=== PATIENT | female | born 1985 | race Caucasian/White ===

== ENCOUNTER → 2016-06-07 | Outpatient (CLI) | payer OTHER ==
[~2016-06-07] MED LIST: ALLDSR60 PO; PRENTAB26 PO
== END | disposition home or self-care (01) ==
LOC: C.PAPS 11:41
PROVIDERS: ATTEND Obstetrics & Gynecology
DX: Z12.4 Encounter for screening for malignant neoplasm of cervix (principal); Z87.42 Personal history of other diseases of the female genital tract

== ENCOUNTER → 2016-07-31 | Outpatient (CLI) | payer OTHER | END | disposition home or self-care (01) | LOC: C.LAB1850 14:17 | PROVIDERS: ATTEND Obstetrics & Gynecology | DX: Z34.90 Encounter for supervision of normal pregnancy, unspecified, unspecified trimester (principal) ==

== ENCOUNTER → 2016-08-18 | Outpatient (CLI) | payer OTHER ==
[~2016-08-18] MED LIST changes: +VALA500T60 PO
[2016-08-18 16:23] LABS: URINE APPEARANCE CLEAR (CLEAR); URINE BILIRUBIN NEG (NEG); URINE COLOR YELLOW; URINE NITRITE NEG (NEG); URINE PH 7.5 (4.5-7.5); URINE SPECIFIC GRAVITY 1.017 (1.000-1.030); UROBILINOGEN NEG (NEG)
[2016-08-18 16:32] LABS: MANUAL MICROSCOPIC REQUIRED? NO; REVIEW REQ? NO
== END | disposition home or self-care (01) ==
LOC: C.LABSPEC 15:50
PROVIDERS: ATTEND Obstetrics & Gynecology
DX: Z34.90 Encounter for supervision of normal pregnancy, unspecified, unspecified trimester (principal)

== ENCOUNTER → 2016-08-30 | Outpatient (CLI) | payer OTHER ==
[2016-08-30 16:45] LABS: BASO % 0.3 %; BASO ABS # 0.03 K/uL (0-0.2); COMPLETE YES; EOS % 2.2 %; HEMATOCRIT 38.8 % (37-47); IG% 0.5 %; LYMPH % 19.9 %; LYMPH ABS # 2.33 K/uL (1.2-3.4); MEAN CELL VOLUME 86.6 fL (80-100); MEAN CORPUSCULAR HEMOGLOBIN 29.9 pg (25-34); MEAN CORPUSCULAR HGB CONC 34.5 g/dl (32-36); MEAN PLATELET VOLUME 10.9 fL (7.4-10.4); MONO % 3.5 %; NEUT % 73.6 %; PLATELET COUNT 247 K/uL (130-400); RED BLOOD COUNT 4.48 M/uL (4.2-5.4); WHITE BLOOD COUNT 11.71 K/uL (4.8-10.8)
[2016-09-02 01:24] LABS: CHLAMYDIA TRACH RNA*** NOT DETECTED (NOT DETECTED); GC (NEIS GONORRHOEAE)RNA** NOT DETECTED (NOT DETECTED)
== END | disposition home or self-care (01) ==
LOC: C.LAB1850 16:05
PROVIDERS: ATTEND Obstetrics & Gynecology
DX: Z34.90 Encounter for supervision of normal pregnancy, unspecified, unspecified trimester (principal)

== ENCOUNTER → 2016-09-26 | Outpatient (CLI) | payer OTHER ==
[2016-09-26 13:59] LABS: GTGD 50 Grams
== END | disposition home or self-care (01) ==
LOC: C.LAB1850 11:11
PROVIDERS: ATTEND Obstetrics & Gynecology
DX: Z34.90 Encounter for supervision of normal pregnancy, unspecified, unspecified trimester (principal)

== ENCOUNTER → 2017-01-04 | Outpatient (CLI) | payer OTHER ==
[~2017-01-04] MED LIST changes: -VALA500T60 PO
[2017-01-04 15:40] LABS: HEMATOCRIT 38.4 % (37-47)
[2017-01-04 16:27] LABS: URINE APPEARANCE CLEAR (CLEAR); URINE BILIRUBIN NEG (NEG); URINE COLOR YELLOW; URINE NITRITE NEG (NEG); URINE SPECIFIC GRAVITY 1.019 (1.000-1.030); UROBILINOGEN NEG (NEG)
[2017-01-04 16:34] LABS: MANUAL MICROSCOPIC REQUIRED? NO; REVIEW REQ? NO
[2017-01-04 17:29] LABS: GTGD 50 Grams
== END | disposition home or self-care (01) ==
LOC: C.LAB1850 13:34
PROVIDERS: ATTEND Obstetrics & Gynecology
DX: Z34.90 Encounter for supervision of normal pregnancy, unspecified, unspecified trimester (principal)

== ENCOUNTER → 2017-02-22 | Outpatient (CLI) | payer OTHER | END | disposition home or self-care (01) | LOC: C.LABSPEC 17:30 | PROVIDERS: ATTEND Obstetrics & Gynecology | DX: Z34.83 Encounter for supervision of other normal pregnancy, third trimester (principal); Z3A.00 Weeks of gestation of pregnancy not specified ==

== ENCOUNTER 2017-03-16 13:10 | Inpatient (IN) | payer OTHER ==
[~2017-03-16] VITALS: Ht 160 cm; Wt 70.5 kg
[2017-03-16] MEDS ORDERED: LACTATED RINGER'S 1000ML 1,000 ML IV PRN (13:37)
[2017-03-16 14:22] LABS: MEAN CELL VOLUME 86.3 fL (80-100); MEAN CORPUSCULAR HGB CONC 34.8 g/dl (32-36); PLATELET COUNT 175 K/uL (130-400); WHITE BLOOD COUNT 20.29 K/uL (4.8-10.8)
[2017-03-16] MEDS: LACTATED RINGER'S 1000ML 1,000 ML IV SCH ×3 (14:26→21:26)
[2017-03-16] MEDS ORDERED: VALA500T60 PO (15:04)
[2017-03-16 15:07] VITALS: Ht 160 cm; Wt 70.5 kg
[2017-03-16] MEDS ORDERED: OXYTOCIN 30 UNITS/500ML NSS IV ONE (17:37)
[2017-03-16] MEDS ORDERED: BUPIVACAINE 0.25% 30 ML VIAL ONE (19:02)
[2017-03-16] MEDS ORDERED: EpHEDrine SULFATE INJ 50 MG/ML AMP ONE (19:02)
[2017-03-16] MEDS ORDERED: FENTANYL 2MCG/ML ROPIV 1.25MG/ML 100ML BAG EPI ONE (19:02)
[2017-03-16] MEDS ORDERED: FENTANYL CITRATE INJ 50 MCG/1 ML 2 ML VIAL ONE (19:03)
[2017-03-16] MEDS ORDERED: LACTATED RINGER'S 1000ML 500 ML IV PRN ×2 (19:05→20:50)
[2017-03-16] MEDS ORDERED: OXYTOCIN 30 UNITS/500ML NSS IV PRN ×2 (19:15→22:00)
[2017-03-16] MEDS ORDERED: NALOXONE HCL INJ 1 MG in SODIUM CHLORIDE 0.9% 1000ML 1,000 ML IV PRN (20:50)
[2017-03-16] MEDS ORDERED: DiphenhydrAMINE HCL 50 MG/ML VIAL IV PRN (21:00)
[2017-03-16] MEDS ORDERED: EpHEDrine SULFATE INJ 50 MG/ML AMP IV PRN (21:00)
[2017-03-16] MEDS ORDERED: NALBUPHINE HCL INJ 10 MG/ML AMP IV PRN (21:00)
[2017-03-16] MEDS ORDERED: NALOXONE HCL INJ 0.4 MG/1 ML VIAL/CARP IV PRN (21:00)
[2017-03-16] MEDS ORDERED: FENTANYL 2MCG/ML ROPIV 1.25MG/ML 100ML BAG EPI PRN (21:00)
[2017-03-16] MEDS ORDERED: METHYLERGONOVINE MALEATE 0.2 MG/ML AMP ONE (21:46)
[2017-03-16] MEDS ORDERED: BENZOCAINE 20% AER SPR 82.5 GM CAN EXT PRN (22:00)
[2017-03-16] MEDS ORDERED: SUPERCREAM 0.870 % 15GM JAR EXT PRN (22:00)
[2017-03-16] MEDS ORDERED: IBUPROFEN 600 MG TAB PO PRN (22:00)
[2017-03-16] MEDS ORDERED: ACETAMINOPHEN 325 MG TAB PO PRN (22:00)
[2017-03-16] MEDS ORDERED: METHYLERGONOVINE MALEATE 0.2 MG/ML AMP IM ONE (22:00)
[2017-03-16] MEDS ORDERED: HYDROCORTISONE ACETATE 25 MG SUPP PR PRN (22:00)
[2017-03-16] MEDS ORDERED: LANOLIN OINT EXT PRN ×2 (22:00)
[2017-03-16] MEDS ORDERED: ACETAMINOPHEN/CODEINE 300/30MG TAB PO PRN ×2 (22:00)
--- NOTE | 2017-03-16 22:11 | DELIVERY SUMMARY ---
DATE OF OPERATION: 03/16/2017 FINDINGS: Viable female with Apgars of 8 and 9. Baby delivered spontaneously over an intact perineum. Cord blood samples obtained. Placenta delivered spontaneously. Inspection of the perineum showed no lacerations. ESTIMATED BLOOD LOSS: 300 mL. COUNTS: Sponge and needle counts were correct. LABOR NOTE: This patient is a 31-year-old 2, para 1 with an EDC of 03/17/2017 at 39+ weeks gestational age who presented today in labor. The patient states that her contractions had began in the morning and increased in intensity. She denied vaginal bleeding. The patient has had a benign course. Her blood type is B negative, antibody negative. She received RhoGAM. Hepatitis B negative. She had normal 1-hour Glucola x2 and a negative third trimester beta strep culture. The patient had a family history of a factor IV deficiency. She was seen by hematology who felt that anticoagulation was not indicated. Upon admission, the patient was 5 to 6 cm dilated, 90% effaced and -1 station. She ambulated for an hour or two with minimal cervical change and she had artificial rupture of membranes for clear fluid. At the time of rupture, the patient was 7 cm dilated. Over the next 5 hours, the patient had no cervical change. In addition, the patient began to involuntarily push causing swelling of her cervix. After discussion with the patient and family, the patient consented to an epidural. Epidural was placed and Pitocin was initiated per induction protocol. Over the next hour, the patient progressed to full dilation and began her second stage. She pushed for approximately half an hour delivering the viable female . Cord was clamped and cut. Cord blood samples were obtained. Placenta was delivered spontaneously. Inspection of the perineum and cervix showed no laceration. Estimated blood loss 300 mL. Sponge and needled count was correct. I attest to the content of the Intraoperative Record and any orders documented therein. Any exception s are noted below.
--- NOTE | 2017-03-17 00:46 | Anesthesia Procedure Note ---
Anesthesia Epidural Removal Nt Date & Time Mar 17, 2017 at 00:46 Vital Signs Pain Intensity: 8.0 Notes Mental Status: alert / awake / arousable, participated in evaluation Nausea / Vomiting: adequately controlled Pain: adequately controlled Airway Patency, RR, SpO2: stable & adequate BP & HR: stable & adequate Hydration State: stable & adequate Neuraxial Anesthesia: was administered, sensory block is resolved Anesthetic Complications: no major complications apparent, pt satisfied with anesthetic care Epidural: removed without complications, with tip intact
[2017-03-17 02:11] VITALS: BP 126/73; PULSE 85; TEMP 37
[2017-03-17 06:44] LABS: HEMATOCRIT 40.7 % (37-47)
[2017-03-17 07:15] VITALS: BP 114/72; PULSE 67; TEMP 36.6
--- NOTE | 2017-03-17 07:16 | OB/GYN Progress Note ---
OPTOMETRIC AIDE Progress Note Date of Service Mar 17, 2017. Subjective conversation w/ patient, physical exam, chart review, lab review Ambulation: ambulating normally Voiding: no voiding problems Passing Gas: Yes Diet Tolerance: Regular Diet Lochia: Small Feeding Type: Breast Feeding Pain: 0/10 pain this AM Review of Systems Constitutional: No fever, No chills Respiratory: No shortness of breath Cardiac: No chest pain Abdomen: No nausea, No vomiting Female : No dysuria Objective Vital Signs Date Time Temp Pulse Resp B/P (MAP) Pulse Ox O2 Delivery O2 Flow Rate FiO2 03/17/17 02:16 Room Air 03/17/17 02:11 37.0 85 18 126/73 (90) Room Air Physical Exam General Appearance: WELL-APPEARING Respiratory/Chest: lungs clear, normal breath sounds Cardiovascular: regular rate, rhythm Abdomen: normal bowel sounds, non tender, soft Fundus: Firm, Relation to Umbilicus (2 Fb below) Extremities: non-tender, no pedal edema Laboratory Results Last 24 Hours Test 03/16/17 13:56 03/17/17 06:18 White Blood Count 20.29 K/uL Red Blood Count 5.10 M/uL Hemoglobin 15.3 g/dL 14.0 g/dL Hematocrit 44.0 % 40.7 % Mean Corpuscular Volume 86.3 fL Mean Corpuscular Hemoglobin 30.0 pg Mean Corpuscular Hemoglobin Concent 34.8 g/dl RDW Standard Deviation 42.2 fL RDW Coefficient of Variation 13.3 % Platelet Count 175 K/uL Mean Platelet Volume 12.0 fL Assessment and Plan Post- Day Number: 1 Continue Routine Care: A/P: This is a 31 y/o female, , s/p [normal vaginal delivery] day 1. She is ambulating and clinically stable. Plan: - Vitals signs are reviewed and WNL (Tmax 37 ) - Last Hgb is 14 - Blood type B- (baby's cord blood also B- no need for rhogham), GBS neg, Rubella Immune - Routine care - Encourage ambulation, monitor and control pain with medication as needed, continue with regular diet as tolerated and monitor lochia - Stool softeners and sitz bath recommended - Encourage breast feeding and educate about breast feeding Resident Physician Supervision Note: I interviewed and examined the patient. Discussed with Dr. Melton and agree with findings and plan as documented in the note. Any exceptions or clarifications are listed here: [None] Documented By: Jayson Sosa Resident Involvement: Resident Care Provided Care Provided: OB Delivery
--- NOTE | 2017-03-17 07:29 | Discharge Instructions ---
Discharge Instructions Date of Service Mar 17, 2017. Admission Reason for Admission: Check Labor Discharge Discharge Diagnosis / Problem: after vaginal delivery Discharge Goals Goal(s): Routine recovery after delivery Medications Continue Dispensed Medications: supercream, dermaplast, tucks, lansinoh Activity Recommendations Activity Limitations: per Instructions/Follow-up section . Instructions / Follow-Up Instructions / Follow-Up ACTIVITY RECOMMENDATIONS: * Gradual return to full activity over the next 2-3 weeks. * No lifting - nothing heavier than baby over the next 2-3 weeks. * Do not engage in vigorous exercise, sexual activity or sports until cleared by your physician. * Do not drive or operate any motorized equipment until cleared by your physician. * You may shower/bathe daily. MEDICATIONS: For discomfort or pain, you may use Acetaminophen (Tylenol), Ibuprofen (Advil), or Naproxen (Aleve) following the package directions. For constipation you may use Colace following the package directions. BREAST CARE: If you are not breast feeding: * Wear a supportive bra 24 hours a day for one to two weeks. * Avoid stimulating your breasts and nipples as much as possible during the first few weeks after delivery. * When taking a shower, have the warm water hit your back, not breasts. * When your breasts feel full, apply ice packs. Usually three to four times a day helps ease the discomfort. * Take a mild pain medication (Tylenol / Motrin) when you are uncomfortable. If breast feeding: * Use breast milk to lubricate nipples. Lansinoh cream may be used for sore nipples. You do not need to remove cream prior to breast feeding. If using a different brand of cream, check the label for directions regarding removal of cream prior to nursing. * Wear a supportive bra. * If having problems with breasts or breast feeding, call a sr. consultant or your health care provider. EPISIOTOMY CARE: After delivery, if you have an episiotomy (stitches), the following steps will ease discomfort and aid healing. * For the first 24 hours after delivery, place ice packs next to your episiotomy to help reduce swelling. * After the first 24 hour-period, sitz baths, either portable or in the tub, are suggested. A shower with a shower arm sprayed over the episiotomy may be comforting. * Sydni care should be done after each voiding and bowel movement. Squirt warm water from a plastic bottle over the perineum (region of the body between the anus and urinary opening) and pat dry. * Use Dermoplast to ease discomfort. Shake container. [place] directly over the episiotomy. Place a Tucks on a clean sanitary pad next to your episiotomy. SPECIAL CARE INSTRUCTIONS: When you are discharged from the hospital, it is important for you to follow the instructions listed below: * During the first week at home, you should be able to care for yourself and your baby. In addition, the usual light household activities are encouraged. * Limit your activities to the way you feel. Do not try to clean the house or move furniture. Be sensible. * If you actively engage in sports and have done so up until the time of your delivery, you may resume these activities as soon as you feel able. This may take up to one month or even longer. Use good judgment. * Continue to take your vitamins for at least six weeks after the of your baby. * Your diet need not be limited unless you were on a special diet before your delivery. Breast-feeding mothers need around 2500 calories per day and at least 64-80 ounces of fluid per day (8 to 10 glasses). * You should eat foods from the four major food groups. Crash diets or fad diets are to be avoided. Eating lean meats, fresh fruits and vegetables, low-fat dairy products, high fiber foods and a regular exercise program, will help you get back to your pre- weight without putting your health at risk. * Constipation is sometimes a problem after delivery. Take a mild laxative as needed. If breast feeding, Milk of Magnesia is acceptable to use. You may use a suppository or Fleets enema if no episiotomy. * A daily shower or tub bath is suggested. Be sure to thoroughly and gently dry the perineum. * A bloody vaginal discharge will usually continue until around four weeks post . A small amount of bleeding may continue for as long as six weeks. Vaginal discharge changes from the bright red bleeding after delivery to pink then brownish and finally yellowish-pink before becoming white and disappearing. * Bleeding may increase with activity. Your first period may come in 4-8 weeks. If you are breast feeding, your period may be delayed even longer. * [place] (sex) can begin whenever both you and your partner feel comfortable and do not have any form of genital infection. It is recommended that you wait at least six weeks for internal and external healing to occur. If you have questions, please talk to your health care practitioner. A condom should be used to prevent infection and . * Foreplay, gentle intercourse and lubrication is very important the first several times to prevent pain. A water-based lubricant such as K-Y jelly or Astroglide may be used. * If you have RH negative blood and your baby is RH positive, you will receive RHOGAM by injection prior to discharge. The nurse will give you a card to keep with you that has the date and place that you received RHOGAM after delivery. * During your care, you had a Rubella screen done to check for the presence of rubella antibodies in your blood. If your test was negative, you will receive a Rubella vaccine prior to discharge. This vaccine may cause a fever, soreness at the injection site and flu-like symptoms. If these symptoms persist, notify your health care practitioner. is not advised for one month after a Rubella vaccine. * Verbalizes understanding of car seat law as reviewed with patient nursing. * Car Seat hand-out given and reviewed with patient by nursing. * Shaken baby information reviewed with patient by nursing. Call you doctor if: * Heavy bleeding (saturating several pads an hour) or passing clots the size of your fist. * A fever >101 degrees F (38.3 degrees C) on two occasions four hours apart and /or chills. * Unusual pain in the pelvic or vaginal areas. * "Baby Blues" lasting longer than two weeks. If you have any questions or concerns, call your health care practitioner at . FOLLOW UP VISIT: * Please call the office at to schedule a 6 week examination. It is important you keep this appointment. It is important for you to make arrangements for either yearly or twice yearly check-ups thereafter. Current Hospital Diet Patient's current hospital diet: Regular OB Diet Discharge Diet Recommended Diet: Regular Diet Pending Studies Studies pending at discharge: no Medical Emergencies . Who to Call and When: Medical Emergencies: If at any time you feel your situation is an emergency, please call 911 immediately. . Non-Emergent Contact Non-Emergency issues call your: [employer] Lead Call Non-Emergent contact if: you have a fever, temperature is above 101, your pain is not controlled . . "Provider Documentation" section prepared by Judie Melton. . VTE Core Measure Inpt VTE Proph given/why not?: Treatment not indicated
[2017-03-17] MEDS: DOCUSATE SODIUM 100 MG CAP PO SCH ×2 (08:34→19:55)
[2017-03-17] MEDS: FERROUS SULFATE 325 MG TAB PO SCH (08:34)
[2017-03-17] MEDS: PRENATAL VITAMIN TAB PO SCH (08:34)
[2017-03-17] MEDS ORDERED: DIPHTHERIA/TETANUS/PERTUSSIS 0.5 ML SYR/VIAL IM. ONE (09:00)
[2017-03-17 11:45] VITALS: BP 103/69; PULSE 84; TEMP 36.6
[2017-03-17 15:30] VITALS: BP 119/79; PULSE 90; TEMP 36.5
[2017-03-17 19:50] VITALS: BP 109/72; PULSE 65; TEMP 36.3
[2017-03-17] MEDS ORDERED: BISACODYL 5 MG TABEC PO SCH (20:00)
[2017-03-17 23:30] VITALS: BP 122/77; PULSE 67; TEMP 36.7
[2017-03-18 07:40] VITALS: BP 114/80; PULSE 60; TEMP 36.6
[2017-03-18] MEDS: DOCUSATE SODIUM 100 MG CAP PO SCH (07:45)
[2017-03-18] MEDS: PRENATAL VITAMIN TAB PO SCH (07:45)
[2017-03-18] MEDS: FERROUS SULFATE 325 MG TAB PO SCH (07:45)
--- NOTE | 2017-03-18 09:24 | Progress Note ---
Subjective Mar 18, 2017. Subjective conversation w/ patient, physical exam, lab review Ambulation: ambulating normally Voiding: no voiding problems Passing Gas: Yes Diet Tolerance: Regular Diet Lochia: Small Feeding Type: Breast Feeding Comment: Feels well. Desires d/c. Objective Vital Signs Date Time Temp Pulse Resp B/P (MAP) Pulse Ox O2 Delivery O2 Flow Rate FiO2 03/18/17 07:40 36.6 60 20 114/80 (91) 03/17/17 23:30 Room Air 03/17/17 23:30 36.7 67 18 122/77 (92) 03/17/17 19:50 36.3 65 18 109/72 (84) Room Air 03/17/17 15:30 36.5 90 20 119/79 (92) Room Air 03/17/17 15:30 Room Air 03/17/17 11:45 36.6 84 18 103/69 (80) Room Air Physical Exam General Appearance: WELL-APPEARING, WD/WN, NO APPARENT DISTRESS Abdomen: non tender, soft Fundus: Firm, Non-Tender, Relation to Umbilicus (2 below u) Extremities: non-tender, normal inspection, no pedal edema Assessment and Plan Post- Day#: 1 Continue Routine Care: Doing well. Would like d/c later today. Reviewed d/c instructions.
[2017-03-18 12:15] VITALS: BP_DIAS 80; PULSE 60; TEMP 36.6
== END 2017-03-18 12:20 | disposition home or self-care (01) | DRG 775 ==
LOC: C.LD 13:10 → C.OPB 13:10 → C.LD 13:38 → C.OPB 13:55 → C.OBG 03-17 00:34
PROVIDERS: ADMIT Obstetrics & Gynecology; ATTEND Obstetrics & Gynecology
PROC: 10E0XZZ Delivery of Products of Conception, External Approach (ICD-10-PCS; principal; 2017-03-16)
DX: O80 Encounter for full-term uncomplicated delivery (principal); Z3A.39 39 weeks gestation of pregnancy; Z37.0 Single live birth

== ENCOUNTER 2019-01-01 07:44 | Inpatient (IN) ==
[2019-01-01] MEDS ORDERED: OXYTOCIN 30 UNITS/500 ML BAG IV PRN ×3 (07:49→19:45)
[2019-01-01] MEDS ORDERED: LACTATED RINGER'S 1,000 ML IV PRN (07:49)
[2019-01-01 08:21] LABS: Hemoglobin 13.7 g/dL (12.0-16.0); Mean Corpuscular Hemoglobin 29.1 pg (25-34); Mean Corpuscular Volume 85.1 fL (80-100); Mean Platelet Volume 11.2 fL (7.4-10.4); Platelet Count 153 K/uL (130-400); RDW Coefficient of Variation 13.1 % (11.5-14.5); RDW Standard Deviation 40.4 fL (36.4-46.3); White Blood Count 11.55 K/uL (4.8-10.8)
[2019-01-01 08:26] LABS: Mean Corpuscular Hgb Conc 34.3 g/dL (32-36)
--- NOTE | 2019-01-01 09:12 | History & Physical Report ---
Date of Service January 01, 2019 Assessment & Plan (1) Encounter for induction of labor: IUP at 40 6/7 weeks for IOL AROM performed for clear fluid monitor now for onset of contractions if labor is not starting within 3 hours , will start pitocin augmentation. anticipate vaginal Present on Admission?: Yes History of Present Illness Primary Care Provider: NO PCP Patient is a 33 yo white female EDC 12/25/18 who presents for induction of labor for post-term . GBS (-) othewise complicated by history of genital herpes for which she has been taking valtrex prophylactically. she had one outbreak during the at around 24 weeks which was treated with Valtrex. Allergies Allergy/AdvReac Type Severity Reaction Status Date / Time No Known Drug Allergies Allergy Verified 12/31/18 13:40 cat dander AdvReac Intermediate stuffy Verified 12/31/18 13:40 nose, itchy eyes Home Medications Home Medications Medication Instructions Recorded Confirmed Type loratadine PO 12/07/18 12/31/18 History 1 tab PO DAILY 12/07/18 12/31/18 History vitamin,calcium,dobibesh-gukf-dmmma acid tablet valacyclovir 500 mg tablet 500 mg PO DAILY 12/07/18 12/31/18 History Patient History Medical History History of varicella Surgical History S/P wisdom tooth extraction Family History Mother Depression Factor VII deficiency Grandmother (Maternal) Factor VII deficiency Aunt Long QT interval Unknown Heart disease Factor VII deficiency Family/Other Long QT interval Other Heart disease Social History Preferred Language: Syriac Communication Ability: Effective Communication Ability Comment: states has hearing loss- reads lips Beliefs That Will Affect Care: None marital status: Current Living Situation: Family Other Information That Helps Us Care for You: No Feels Safe at Home: Yes Safety Concerns: Feels Safe At This Time Smoking Status: Never smoker Do You Dip or Chew Tobacco: No ; Hx Alcohol Use: No Hx Substance Use: No Review of Systems All systems reviewed & are unremarkable except as noted in HPI & below Physical Exam Constitutional: WD/WN, vitals as above Respiratory: normal respiratory effort, lungs clear to auscultation Cardiovascular: RRR, no murmur, no edema Gastrointestinal (Abdomen): normal bowel sounds, soft, nontender, no hepatosplenomegaly Psychiatric: A+Ox3, euthymic affect Genitourinary: OB Exam Abdomen: + vertex and + estimated weight (7-8 pounds) Manual OB Exam: + cervical dilation 4 cm, + cervical effacement 70% and + station -2 OB Exam Monitor Tracing: + external FHT monitor used, + exte rnal uterine monitor used, + category I and + normal FHT variability Results & Data Vital Signs (Past 12 Hours) Vital Signs Temp Pulse Resp BP 01/01/19 08:11 109 H 122/69 01/01/19 07:58 97.7 F 20 Code Status & VTE Plan VTE Prophylaxis Plan VTE Prophylaxis will be ordered: No
[2019-01-01] MEDS ORDERED: BUPIVACAINE 0.25% 30 ML VIAL ONE (12:37)
[2019-01-01] MEDS ORDERED: fentaNYL 2MCG/ML ROPIV 1.25MG/ML 100 ML BAG EPI ONE (12:38)
[2019-01-01] MEDS ORDERED: fentaNYL citrate 100 MCG/2 ML VIAL ONE ×2 (12:38→14:26)
[2019-01-01] MEDS ORDERED: ePHEDrine sulfate 50 MG/ML AMP ONE (12:38)
[2019-01-01] MEDS ORDERED: fentaNYL 2MCG/ML ROPIV 1.25MG/ML 100 ML BAG EPI PRN (13:03)
[2019-01-01] MEDS ORDERED: NALBUPHINE HCL INJ 10 MG/ML AMP IV PRN (13:03)
[2019-01-01] MEDS ORDERED: ONDANSETRON INJ 2 MG/ML 2 ML VIAL IV PRN (13:03)
[2019-01-01] MEDS ORDERED: ePHEDrine sulfate 50 MG/ML AMP IV PRN (13:03)
[2019-01-01] MEDS ORDERED: DiphenhydrAMINE HCL 50 MG/ML VIAL IV PRN (13:03)
[2019-01-01] MEDS ORDERED: NALOXONE HCL 0.4 MG/1 ML VIAL/CARP IV PRN (13:03)
[2019-01-01] MEDS ORDERED: NALOXONE HCL 1 MG in SODIUM CHLORIDE 0.9% 1000ML 1,000 ML IV PRN (13:03)
--- NOTE | 2019-01-01 13:03 | Anesthesiology Consultation ---
Date of Service January 01, 2019 Assessment & Plan (1) Encounter for pre-operative examination: Chart Review Chart Review: Acceptable Risk for Labor Epidural Consults Requested none ASA ASA2 Proposed Anesthesia Anesthesia Type: Labor Epidural Risk / Benefits Reviewed With: PT / POA / Parent / Guardian, Accepts Plan and Informed Consent Obtained History Height/Weight Height: 5 ft 3 in Weight: 76.385 kg Allergies Allergy/AdvReac Type Severity Reaction Status Date / Time No Known Drug Allergies Allergy Verified 12/31/18 13:40 cat dander AdvReac Intermediate stuffy Verified 12/31/18 13:40 nose, itchy eyes Medications Home Medications Medication Instructions Recorded Confirmed Last Taken loratadine 1 tab PO Q OTHER DAY 12/07/18 01/01/19 12/30/18 22:00 1 tab PO DAILY 12/07/18 01/01/19 12/31/18 22:00 vitamin,calcium,joupsmhh-puyo-jehll acid tablet valacyclovir 500 mg tablet 500 mg PO DAILY 12/07/18 01/01/19 12/31/18 22:00 Active Medications Generic Name Dose Route Start Last Admin Trade Name Freq PRN Reason Stop Dose Admin Lactated Ringer's 1,000 mls @ 125 mls/hr 01/01/19 07:49 01/01/19 12:39 Lr IV 01/03/19 07:48 999 mls/hr .Q8H PRN Infusion L&D Protocol Protocol Past Medical History Medical History History of varicella Exercise / Class Metabolic Activity II 4-5 Yardwork/Stairs/Walk up hill Past Family History Family History Mother Depression Factor VII deficiency Grandmother (Maternal) Factor VII deficiency Aunt Long QT interval Unknown Heart disease Factor VII deficiency Family/Other Long QT interval Other Heart disease Past Surgical History Surgical History S/P wisdom tooth extraction Past Anesthesia History No Hx of Anesthesia Complications and No Family Hx of Anesthesia Complications History of PONV No Hx of PONV and No Hx of Motion Sickness Social History Smoking Status: Never smoker Do You Dip or Chew Tobacco: No Hx Alcohol Use: No Hx Substance Use: No Physical Exam Vital Signs Last Vital Signs Temp 98.1 F 01/01/19 11:39 Pulse 103 H 01/01/19 11:40 Resp 20 01/01/19 11:39 BP 127/74 01/01/19 11:40 ENMT Mouth: no dentition abnormality Thyromental Distance: > or= 3.5 Finger Breadths Mallampati Class: II Neck normal visual inspection Respiratory normal respiratory effort Auscultation: lungs clear to auscultation bilaterally Cardiovascular Rate/Rhythm: regular rate and regular rhythm Testing Laboratory Results 01/01/19 08:04
--- NOTE | 2019-01-01 14:53 | Anesthesiology Progress Note ---
Date of Service January 01, 2019 Subjective The patient stated having increasing labor pains. The epidural was incrementally dosed with 50mcg of fentanyl and 8mL of 0.125% bupivacaine. VSS throughout. The patient stated having improved labor pains. Physical Exam Vital Signs: Last Vital Signs Temp 98.2 F 01/01/19 14:00 Pulse 86 01/01/19 14:49 Resp 20 01/01/19 14:00 BP 116/64 01/01/19 14:49 Pulse Ox 100 01/01/19 14:49 Results & Data Medications Administered Lactated Ringer's (Lr) 1,000 mls @ 125 mls/hr IV .Q8H PRN; Protocol PRN Reason: L&D Protocol Stop: 01/03/19 07:48 Last Infusion: 01/01/19 13:41 Dose: 125 mls/hr Documented by: [id number] Infusion: 01/01/19 12:39 Dose: 999 mls/hr Documented by: [id number] Admin: 01/01/19 12:33 Dose: 125 mls/hr Documented by: [id number] Oxytocin (Pitocin) 30 units in 500 mls @ 2 mls/hr IV .Q24H PRN; Protocol PRN Reason: Labor Induction/Augmentation Stop: 01/03/19 07:48 Last Admin: 01/01/19 13:34 Dose: 0.12 units/hr, 2 mls/hr Documented by: [id number] Cosigned by: [id number]
[2019-01-01] MEDS ORDERED: fentaNYL citrate 100 MCG/2 ML VIAL INT SPINAL STA (16:16)
[2019-01-01] MEDS ORDERED: BISACODYL 10 MG SUPP PR PRN (19:45)
[2019-01-01] MEDS ORDERED: BENZOCAINE 20% AER SPR 82.5 GM CAN EXT PRN (19:45)
[2019-01-01] MEDS ORDERED: HYDROCORTISONE ACETATE 25 MG SUPP PR PRN (19:45)
[2019-01-01] MEDS ORDERED: SUPERCREAM 0.870% 15 GM JAR EXT PRN (19:45)
[2019-01-01] MEDS ORDERED: ACETAMINOPHEN 325 MG TAB PO PRN (19:45)
[2019-01-01] MEDS ORDERED: OXYCODONE/ACETAMINOPHEN 5mg/325mg TAB PO PRN (19:45)
[2019-01-01] MEDS ORDERED: DIPHTHERIA/TETANUS/PERTUSSIS 0.5 ML SYR/VIAL IM ONE (19:45)
--- NOTE | 2019-01-01 20:48 | Delivery Summary ---
DATE OF OPERATION: 01/01/2019 The patient is a 33-year-old 3, para 2-0-0-2, white female who presented for post-dates induction. Membranes were initially ruptured for clear fluid. She did require Pitocin augmentation. She received effective epidural analgesia. She progressed to full dilation and pushed effectively over intact perineum for viable male . There was a moderate shoulder dystocia present which was relieved with hyperflexion of the hips. The rest of the infant was delivered easily and was placed on the mother's abdomen for further attention. The cord was cut and clamped after 1 minute, the infant was vigorous and moving all 4 limbs. The placenta was then expressed intact after obtaining a cord blood sample. There was no perineal lacerations or abrasions. The estimated blood loss was 250 mL. bleeding was controlled with dilute Pitocin. Mother and infant were doing well after delivery. I attest to the content of the Intraoperative Record and any orders documented therein. Any exception s are noted below.
--- NOTE | 2019-01-01 20:52 | Anesthesia Procedure Note ---
Date of Service January 01, 2019 Anesthesia Post Epidural Note Vital Signs Vital Signs: Temp Pulse Resp BP Pulse Ox 36.9 C 80 20 123/70 98 01/01/19 17:00 01/01/19 20:38 01/01/19 20:22 01/01/19 20:38 01/01/19 19:35 Pain Intensity Bilateral Lower Abdomen: Pain Intensity: 3 Lower Back: Pain Intensity: 0 Notes Mental Status: alert / awake / arousable Patient Amnestic to Procedure: Yes Nausea / Vomiting: adequately controlled Pain: adequately controlled Airway Patency, RR, SpO2: stable & adequate BP & HR: stable & adequate Hydration State: stable & adequate Neuraxial Anesthesia: was administered and sensory block is resolving Anesthetic Complications: no major complications apparent and Pt Satisfied with anesthetic care Epidural: Removed without complications and With tip intact
[2019-01-01] MEDS: DOCUSATE SODIUM 100 MG CAP PO SCH (21:02)
--- NOTE | 2019-01-02 06:34 | Obstetrical Progress Note ---
Date of Service <Jace Mishra DO - Last Filed: 01/02/19 06:50> January 02, 2019 Assessment & Plan <DO Charli Jenkins Last Filed: 01/02/19 06:50> (1) Encounter for induction of labor: -PPD#1 -Vitals reviewed, WNL (Tmax 37.0) - GBS -, Blood Type B- - Clinically stable. - Feels well today. Eating well, voiding well, ambulating well. - Pain well controlled. - Routine post- care Present on Admission?: Yes Subjective <DO Charli Jenkins Last Filed: 01/02/19 06:50> Ambulation: ambulating normally Voiding: no voiding problems Passing Gas:: Yes Diet Tolerance:: regular diet Lochia:: Moderate Feeding Type:: breast feeding Current Pain Level(1-10): 0 Patient is a 33 PPD#1. Patient states that she is feeling well today and that her pain is well controlled. She has no other complaints at this time. Constitutional: no fever and no chills Respiratory: no cough, no dyspnea and no wheezing Cardiovascular: no chest pain, no dyspnea, no palpitations, no edema and no calf pain Breast: no breast pain Gastrointestinal: no abdominal pain, no nausea and no vomiting Genitourinary (female): no dysuria and no difficulty urinating Neurologic: no headache(s) Physical Exam <DO Charli Jenkins Last Filed: 01/02/19 06:50> Constitutional WD/WN, vitals as above Respiratory normal respiratory effort, lungs clear to auscultation Cardiovascular Rate/Rhythm: regular rate and regular rhythm Heart Sounds: normal S1 and normal S2; no click, no gallop, no murmur and no cardiac rub Extremities: no calf tenderness and no edema Gastrointestinal (Abdomen) Inspection/Auscultation: abdomen normal to inspection and normal bowel sounds Percussion/Palpation: + abdomen tender (Slight tenderness to palpation of lower quadrants of abdomen) and abdomen soft Genitourinary OB Exam Abdomen: + fundal height Fundus: + firm and + relation to umbilicus (1 cm below ); not tender and not boggy Results & Data <DO Charli Jenkins Last Filed: 01/02/19 06:50> Vital Signs (Past 12 Hours) Vital Signs Temp Pulse Pulse Resp BP BP Pulse Ox 01/02/19 04:40 36.7 C 83 18 111/72 01/01/19 22:40 36.9 C 71 18 140/70 01/01/19 21:23 103 H 136/80 01/01/19 21:22 18 01/01/19 21:08 95 H 132/80 01/01/19 20:53 94 H 134/69 01/01/19 20:52 37.0 C 20 01/01/19 20:38 80 123/70 01/01/19 20:23 81 119/70 01/01/19 20:22 20 01/01/19 20:08 104 H 124/67 01/01/19 20:07 18 01/01/19 19:55 167/89 H 01/01/19 19:52 18 01/01/19 19:37 106 H 20 121/57 L 01/01/19 19:35 108 H 98 01/01/19 19:30 117 H 135/65 98 01/01/19 19:25 129 H 90 01/01/19 19:20 130 H 99 01/01/19 19:16 118 H 137/81 01/01/19 19:15 102 H 100 01/01/19 19:10 95 H 99 01/01/19 19:05 99 H 100 01/01/19 19:01 97 H 124/84 01/01/19 19:00 93 H 20 99 01/01/19 18:55 103 H 100 01/01/19 18:50 110 H 99 01/01/19 18:47 108 H 136/95 01/01/19 18:45 103 H 99 01/01/19 18:40 97 H 100 01/01/19 18:35 111 H 98 Laboratory Results Abnormal lab results 01/01/19 Range/Units 08:04 WBC 11.55 H (4.8-10.8) K/uL MPV 11.2 H (7.4-10.4) fL Medications Administered Current Inpatient Medications Acetaminophen (Tylenol) 650 mg PO Q6H PRN PRN Reason: Pain/SHAH/Fever Stop: 01/31/19 19:44 Benzocaine (Dermoplast Pain Relieving [place]) 1 appln EXT PRN PRN PRN Reason: Perineal Discomfort Stop: 01/31/19 19:44 Last Admin: 01/01/19 21:03 Dose: 82.5 appln Documented by: Bisacodyl (Dulcolax) 10 mg [place] DAILY PRN PRN Reason: No BM on 2nd post- day Stop: 01/31/19 19:44 Bisacodyl (Dulcolax) 5 mg PO 1999 [facility] Stop: 01/02/19 20:01 Cocaine HCl (Supercream 0.870%) 1 gm EXT BID PRN PRN Reason: Hemorrhoidal Inflammation Stop: 01/15/19 19:44 Diphenhydramine HCl (Benadryl) 25 mg IV Q6H PRN PRN Reason: Itching Stop: 01/02/19 13:02 Docusate Sodium (Colace) 100 mg PO DAILY@ [facility] Stop: 01/31/19 20:59 Last Admin: 01/01/19 21:02 Dose: 100 mg Documented by: Ephedrine Sulfate (Ephedrine Sulfate) 10 mg IV Q5M PRN PRN Reason: Hypotension Stop: 01/02/19 13:02 Hydrocortisone (Anusol Hc) 25 mg TN BID PRN PRN Reason: Hemorrhoidal Inflammation Stop: 01/31/19 19:44 Lactated Ringer's (Lr) 1,000 mls @ 125 mls/hr IV .Q8H PRN; Protocol PRN Reason: L&D Protocol Stop: 01/03/19 07:48 Last Infusion: 01/01/19 13:41 Dose: Infused Documented by: Oxytocin (Pitocin) 30 units in 500 mls @ 999 mls/hr IV .Q31M PRN; Protocol PRN Reason: Labor Induction/Augmentation Stop: 01/03/19 07:48 Last Titration: 01/01/19 20:11 Dose: Infused Documented by: Oxytocin (Pitocin) 30 units in 500 mls @ 333.333 mls/hr IV .Q1H30M PRN; Protocol PRN Reason: Bleeding Control Stop: 01/31/19 07:48 Naloxone HCl 1 mg/ Sodium (Chloride) 1,002.5 mls @ 50 mls/hr IV .Q20H3M PRN PRN Reason: itching or nausea Stop: 01/02/19 13:02 Oxytocin (Pitocin) 30 units in 500 mls @ 333.333 mls/hr IV .Q1H30M PRN; Protocol PRN Reason: Bleeding Control Stop: 01/31/19 19:44 Ibuprofen (Motrin) 600 mg PO Q4H PRN PRN Reason: Pain/SHAH/Cramping/Fever Stop: 01/31/19 19:44 Nalbuphine HCl (Nubain) 5 mg IV Q10M PRN PRN Reason: itching or nausea Stop: 01/02/19 13:02 Naloxone HCl (Narcan) 0.1 mg IV UD PRN PRN Reason: respiratory depression Stop: 01/02/19 13:02 Ondansetron HCl (Zofran) 4 mg IV Q6H PRN PRN Reason: Nausea And Vomiting Stop: 01/02/19 13:02 Oxycodone/Acetaminophen (Percocet 5mg/325mg) 1 tab PO Q4H PRN PRN Reason: Pain not relieved by... Stop: 01/15/19 19:44 Prenat Multivit/[place]/Iron/Folic Ac ( Vitamin) 1 tab PO DAILY@08 JU Stop: 02/01/19 07:59 Ropivacaine (Epidural (L&D)) 100 ml EPI PRN PRN; Protocol PRN Reason: Pain R/T Labor Stop: 01/02/19 13:02 Last Admin: 01/01/19 19:03 Dose: 100 ml Documented by: <Paulette Manzanares MD, FACOG - Last Filed: 01/02/19 07:11> Co-Signing Physician Notes Resident Physician Supervision Note: I was present with Dr. Mishra during the history and exam. I discussed the case with the resident and agree with the findings and plan as documented in the note. Any exceptions or clarifications are listed here: [None] Documented By: Paulette Manzanares MD, FACOG Resident Activity Tracking <Jace Mishra DO - Last Filed: 01/02/19 06:50> Resident Involvement: Resident Care Provided Care Provided: OB Delivery
[2019-01-02 07:03] LABS: Hematocrit (blood only) 37.1 % (37-47); Hemoglobin 12.7 g/dL (12.0-16.0); Mean Corpuscular Hemoglobin 29.2 pg (25-34); Mean Corpuscular Hgb Conc 34.2 g/dL (32-36); Mean Corpuscular Volume 85.3 fL (80-100); Mean Platelet Volume 11.7 fL (7.4-10.4); Platelet Count 146 K/uL (130-400); RDW Coefficient of Variation 13.3 % (11.5-14.5); RDW Standard Deviation 41.2 fL (36.4-46.3); Red Blood Count 4.35 M/uL (4.2-5.4); White Blood Count 14.57 K/uL (4.8-10.8)
[2019-01-02] MEDS: PRENATAL VITAMIN 1 TAB PO SCH (08:18)
[2019-01-02] MEDS: DOCUSATE SODIUM 100 MG CAP PO SCH ×2 (08:18→20:24)
[2019-01-02] MEDS: IBUPROFEN 600 MG TAB PO PRN ×2 (09:07→19:06)
[2019-01-02] MEDS ORDERED: BISACODYL 5 MG TABEC PO SCH (20:00)
--- NOTE | 2019-01-03 06:35 | Obstetrical Progress Note ---
Date of Service <Jace Mishra DO - Last Filed: 01/03/19 06:40> January 03, 2019 Assessment & Plan <DO Charli Jenkins Last Filed: 01/03/19 06:40> (1) Encounter for induction of labor: -PPD#2 -Vitals reviewed, WNL (Tmax 36.9) - GBS -, Blood Type B- - Clinically stable. - Feels well today. Eating well, voiding well, ambulating well. - Pain well controlled. - Routine post- care. -Counseled on DC today. Day #:: 2 Subjective <DO Charli Jenkins Last Filed: 01/03/19 06:40> Voiding: no voiding problems Passing Gas:: Yes Diet Tolerance:: regular diet Lochia:: Small Feeding Type:: breast feeding Current Pain Level(1-10): 1 (Improves with analgesics) Patient is a 33 PPD#2. Patient states that she is feeling well today and that her pain is well controlled. She has no other complaints at this time. Constitutional: no fever and no chills Respiratory: no cough, no dyspnea and no wheezing Cardiovascular: + edema; no chest pain, no dyspnea, no palpitations and no calf pain Breast: no breast pain Gastrointestinal: no abdominal pain, no nausea and no vomiting Genitourinary (female): no dysuria and no difficulty urinating Slight uterine pain while . Neurologic: no headache(s) Physical Exam <DO Charli Jenkins Last Filed: 01/03/19 06:40> Constitutional WD/WN, vitals as above Respiratory normal respiratory effort, lungs clear to auscultation Cardiovascular Rate/Rhythm: regular rate and regular rhythm Heart Sounds: normal S1 and normal S2; no click, no gallop, no murmur and no cardiac rub Extremities: no calf tenderness and no edema Gastrointestinal (Abdomen) Inspection/Auscultation: abdomen normal to inspection and normal bowel sounds Percussion/Palpation: + abdomen tender (Slight tenderness to palpation of lower quadrants of abdomen) and abdomen soft Genitourinary OB Exam Abdomen: + fundal height Fundus: + firm and + relation to umbilicus (3cm below ); not tender and not boggy Results & Data <DO Charli Jenkins Last Filed: 01/03/19 06:40> Vital Signs (Past 12 Hours) Vital Signs Temp Pulse Resp BP Pulse Ox 01/02/19 23:30 36.6 C 82 18 118/75 01/02/19 19:05 36.8 C 90 18 133/90 98 Laboratory Results Abnormal lab results 01/02/19 Range/Units 06:29 WBC 14.57 H (4.8-10.8) K/uL MPV 11.7 H (7.4-10.4) fL Medications Administered Current Inpatient Medications Acetaminophen (Tylenol) 650 mg PO Q6H PRN PRN Reason: Pain/SHAH/Fever Stop: 01/31/19 19:44 Benzocaine (Dermoplast Pain Relieving [place]) 1 appln EXT PRN PRN PRN Reason: Perineal Discomfort Stop: 01/31/19 19:44 Last Admin: 01/01/19 21:03 Dose: 82.5 appln Documented by: Bisacodyl (Dulcolax) 10 mg [place] DAILY PRN PRN Reason: No BM on 2nd post- day Stop: 01/31/19 19:44 Cocaine HCl (Supercream 0.870%) 1 gm EXT BID PRN PRN Reason: Hemorrhoidal Inflammation Stop: 01/15/19 19:44 Docusate Sodium (Colace) 100 mg PO DAILY@08,21 JU Stop: 01/31/19 20:59 Last Admin: 01/02/19 20:24 Dose: 100 mg Documented by: Hydrocortisone (Anusol Hc) 25 mg [place] BID PRN PRN Reason: Hemorrhoidal Inflammation Stop: 01/31/19 19:44 Lactated Ringer's (Lr) 1,000 mls @ 125 mls/hr IV .Q8H PRN; Protocol PRN Reason: L&D Protocol Stop: 01/03/19 07:48 Last Infusion: 01/01/19 13:41 Dose: Infused Documented by: Oxytocin (Pitocin) 30 units in 500 mls @ 999 mls/hr IV .Q31M PRN; Protocol PRN Reason: Labor Induction/Augmentation Stop: 01/03/19 07:48 Last Titration: 01/01/19 20:11 Dose: Infused Documented by: Oxytocin (Pitocin) 30 units in 500 mls @ 333.333 mls/hr IV .Q1H30M PRN; Protocol PRN Reason: Bleeding Control Stop: 01/31/19 07:48 Oxytocin (Pitocin) 30 units in 500 mls @ 333.333 mls/hr IV .Q1H30M PRN; Pro tocol PRN Reason: Bleeding Control Stop: 01/31/19 19:44 Ibuprofen (Motrin) 600 mg PO Q4H PRN PRN Reason: Pain/SHAH/Cramping/Fever Stop: 01/31/19 19:44 Last Admin: 01/02/19 19:06 Dose: 600 mg Documented by: Oxycodone/Acetaminophen (Percocet 5mg/325mg) 1 tab PO Q4H PRN PRN Reason: Pain not relieved by... Stop: 01/15/19 19:44 Prenat Multivit/[place]/Iron/Folic Ac ( Vitamin) 1 tab PO DAILY@08 JU Stop: 02/01/19 07:59 Last Admin: 01/02/19 08:18 Dose: 1 tab Documented by: <Luis Tyler MD - Last Filed: 01/03/19 07:21> Co-Signing Physician Notes Patient seen and evaluated and agree with the above findings and plan by resident. Patient stable for discharge. Discussed post instructions.
[2019-01-03 07:18] LABS: Hematocrit (blood only) 38.8 % (37-47); Hemoglobin 12.9 g/dL (12.0-16.0)
[2019-01-03] MEDS: DOCUSATE SODIUM 100 MG CAP PO SCH (08:47)
[2019-01-03] MEDS: PRENATAL VITAMIN 1 TAB PO SCH (08:47)
== END 2019-01-03 12:00 | disposition home or self-care (01) | DRG 807 ==
LOC: 4S1 07:44 → 4S2 22:51